=== PATIENT | female | born 1965 | race Caucasian/White ===

== ENCOUNTER 2024-04-08 10:47 | Observation (INO) | payer BC ==
[2024-04-08 12:23] LABS: ALT (SGPT) 28 U/L (8-55); AST (SGOT) 39 U/L (5-34); Albumin 3.9 g/dL (3.5-5.0); Alkaline Phosphatase 57 U/L (40-110); Anion Gap 15 mmol/L (10-20); BUN (Urea Nitrogen) 15 mg/dL (9.8-20.1); Bilirubin, Total 0.7 mg/dL (0.2-1.2); Calc. Creatinine Clearance 0 mL/min (70-130); Calcium 9.6 mg/dL (7.8-10.44); Carbon Dioxide 22 mmol/L (22-29); Chloride 108 mmol/L (98-107); Estimated GFR 96; Globulin 3.1 g/dL (2.4-3.5); Glucose 198 mg/dL (70-105); Potassium 3.4 mmol/L (3.5-5.1); Sodium 142 mmol/L (136-145)
[2024-04-08 12:24] LABS: #Basophils 0.03 10x3/uL (0.0-0.2); %Basophils 0.7 % (0.0-1.0); %Lymphocytes 40.1 % (21.0-51.0); %Monocytes 6.3 % (0.0-10.0); %Neutrophils 48.7 % (42.0-75.0); Hematocrit 37.1 % (36.0-47.0); Hemoglobin 12.2 g/dL (12.0-16.0); Mean Corpuscular HGB CONC 32.9 g/dL (32.0-36.0); Mean Corpuscular Hemoglobin 27.7 pg (27.0-31.0); Mean Corpuscular Volume 84.3 fL (78.0-98.0); Mean Platelet Volume 10.6 fL (7.4-10.4); Platelet Count 106 10x3/uL (130-400); RBC Distribution Width 14.4 % (11.5-14.5)
[2024-04-08 12:28] LABS: Troponin I Less than 0.010 ng/mL (< 0.028)
[2024-04-08 13:31] LABS: Platelet Adequacy Comment Platelets Decreased; Poikilocytosis SLIGHT = 6-15 cells HPF (0-5); Polychromasia SLIGHT = 2-3 cells HPF (0-2); Tear Drops SLIGHT = 2-5 cells HPF (0-1)
[2024-04-08] MEDS ORDERED: Ondansetron ODT 4 MG TAB PO PRN (13:57)
[2024-04-08] MEDS ORDERED: hydrALAZINE 20 MG/ML VIAL SLOW IVP PRN (13:57)
[2024-04-08] MEDS ORDERED: Aspirin Chewable 81 MG TAB ONE (14:04)
[2024-04-08] MEDS ORDERED: Electrolyte Replacement Protocol 1 EACH FS SCH (14:43)
[2024-04-08 15:05] VITALS: BP 142/78; TEMP 97.7
[2024-04-08] MEDS ORDERED: Dextrose 50% Abboject 50 ML SYRINGE SLOW IVP PRN (15:06)
[2024-04-08] MEDS ORDERED: Glucagon 1 MG/ML KIT IM PRN (15:06)
[2024-04-08] MEDS ORDERED: Dextrose 5% in Water 1,000 ML IV PRN (15:06)
[2024-04-08] MEDS ORDERED: Insulin Lispro 100 UNIT/ML 10 ML VIAL SC PRN (15:13)
[2024-04-08] MEDS ORDERED: Iopamidol-370 76% 500 ML MDV (1 ML CHARGE) ONE (15:47)
[2024-04-08] MEDS: Potassium Bicarbonate/Cit Ac 20 MEQ TAB PO SCH (16:28)
[2024-04-08 18:01] VITALS: BMI 47.1
[2024-04-08] MEDS: Acetaminophen 325 MG TAB PO SCH (18:01)
[2024-04-08] MEDS ORDERED: Atorvastatin Calcium 40 MG TAB PO SCH (21:00)
[2024-04-09] MEDS ORDERED: Aspirin 81 mg Enteric Coated Tablet PO SCH (09:00)
[2024-04-09] MEDS ORDERED: Enoxaparin 40 MG (0.4 mL) SYRINGE SC SCH (09:00)
== END 2024-04-08 18:53 | disposition home or self-care (01) ==
LOC: ERS 10:47 → 2SE 15:02
PROVIDERS: ADMIT Internal Medicine; ATTEND Internal Medicine
DX: R29.810 Facial weakness (principal); I10 Essential (primary) hypertension; E11.9 Type 2 diabetes mellitus without complications; E78.5 Hyperlipidemia, unspecified; E87.6 Hypokalemia; Z87.891 Personal history of nicotine dependence; Z79.82 Long term (current) use of aspirin; Z79.84 Long term (current) use of oral hypoglycemic drugs; Z79.899 Other long term (current) drug therapy
CPT/HCPCS: 36416; 70450; 70496; 70498; 70551; 80053; 84484; 85025; 93005; G0378; Q9967